=== PATIENT | male | born 1995 | race African-American/Black ===

== ENCOUNTER → 2019-09-06 | Outpatient (CLI) | payer OTHER ==
[~2019-09-06] MED LIST: HYDR-3165 PO
== END | disposition home or self-care (01) ==
LOC: LAB 13:29
PROVIDERS: ATTEND Orthopaedic Surgery
DX: Z01.818 Encounter for other preprocedural examination (principal); Z11.59 Encounter for screening for other viral diseases; S83.261A Peripheral tear of lateral meniscus, current injury, right knee, initial encounter; X58.XXXA Exposure to other specified factors, initial encounter; Y92.89 Other specified places as the place of occurrence of the external cause; Y93.89 Activity, other specified; Y99.8 Other external cause status
CPT/HCPCS: U0003-CS

== ENCOUNTER 2019-09-10 06:44 | Day surgery (SDC) | payer OTHER ==
[~2019-09-10] VITALS: Ht 177.8 cm; Wt 106.6 kg
[2019-09-10] MEDS ORDERED: PROPOFOL 10 MG/ML (20ML) VIAL. IV ONE (06:46)
[2019-09-10] MEDS ORDERED: MIDAZOLAM HCL/PF 2 MG/2 ML VIAL. ONE (06:46)
[2019-09-10] MEDS ORDERED: LIDOCAINE 2% PF 5 ML VIAL. ONE (06:46)
[2019-09-10] MEDS ORDERED: fentaNYL PF VIAL 100 MCG/2 ML VIAL ONE (06:46)
[2019-09-10] MEDS ORDERED: ONDANSETRON PF 4 MG/2 ML VIAL. ONE (06:46)
[2019-09-10] MEDS ORDERED: KETOROLAC 30 MG/ML VIAL. ONE (06:46)
[2019-09-10] MEDS ORDERED: DEXAMETHASONE SOD PHOS 4 MG/ML VIAL ONE (06:46)
[2019-09-10] MEDS ORDERED: MORPHINE SULFATE 2 MG/ML VIAL. IV PRN (07:00)
[2019-09-10] MEDS ORDERED: IV RINGERS,LACTATED 1000ML 1,000 ML IV SCH (07:00)
[2019-09-10] MEDS ORDERED: fentaNYL PF VIAL 100 MCG/2 ML VIAL IV PRN ×2 (07:00)
[2019-09-10] MEDS ORDERED: PROCHLORPERAZINE 10 MG/2 ML VIAL. IV PRN (07:00)
[2019-09-10] MEDS ORDERED: ONDANSETRON PF 4 MG/2 ML VIAL. IV PRN (07:00)
[2019-09-10] MEDS ORDERED: HYDROmorphone 2 MG/ML VIAL IV PRN (07:00)
[2019-09-10] MEDS ORDERED: BUPIVACAINE-EPI 0.5%-1:200000 MPF 30 ML VIAL. ONE (07:01)
[2019-09-10] MEDS ORDERED: BUPIVACAINE MPF 0.5% 30 ML VIAL. ONE (07:02)
[2019-09-10] MEDS ORDERED: GLYCOPYRROLATE 1 MG/5 ML VIAL. ONE (07:16)
[2019-09-10] MEDS ORDERED: HYDR-3165 PO (08:24)
--- NOTE | 2019-09-10 08:25 | DISCH ---
DISCHARGE INSTRUCTIONS Condition on Discharge Condition on Discharge: Stable Activity After Discharge Activity Instructions for Disc: Other, see below (Slow return to normal act ivity as tolerated) Weight Bearing Status after Di: As tolerated Diet after Discharge Diet after Discharge: Regular Wound Incision Care Wound/Incision Care: Ice to area for comfort, Keep wound elevated, Change dressing (Remove dressing in 2 days may then shower no soaking until sutures removed) Contacting the DRRina after DC Call your doctor for: Concerns you may have Follow-Up Follow up with: Dr. Gao 1 week RANJIT GAO MD Sep 10, 2019 08:25
[2019-09-10 08:59] VITALS: BP 142/95
[2019-09-10] MEDS ORDERED: HYDROcodone/APAP 7.5/325MG 1 TAB TABLET PO ONE (09:00)
--- NOTE | 2019-09-10 09:23 | PDOC4 ---
Operative Note Operative Note Date of surgery: 09/10/2019 Preoperative diagnosis: Right knee lateral meniscus tear Postoperative diagnosis: Same with complex tear body and posterior horn lateral meniscus Operative procedure: Right knee arthroscopy partial lateral meniscectomy Surgeon: Sima Diver Tender: Candice Estimated blood loss: 5 cc Complications: None Operative indications: Please see my orthopedic clinic note for detailed operative indications and note that patient is an active 24-year-old male with pain swelling mechanical symptoms and MRI showing a lateral meniscus tear. We covered risks benefits postoperative course of surgical treatment including the possibility of a repair if the anatomy of the tear is sufficient to potential healing and the potential excision of the damaged part of the meniscus if it is not. We covered restrictions if the repair is feasible and carried out versus partial meniscectomy. All his questions were answered he wishes to proceed with surgical evaluation and treatment Operative text: Patient was identified procedure verified patient placed in the supine position on the operating table. After adequate amounts of general anesthesia were administered the right lower extremity was prepped and draped in standard sterile fashion with a thigh tourniquet. After timeout was performed patient procedure identified and verified the right lower extremity was exsanguinated by Esmarch bandage tourniquet inflated to 350 mmHg and a lateral portal was established medial portal established using spinal needle localization and the knee joint was systematically examined. He was found to have good patellofemoral tracking no significant chondromalacia no loose bodies noted in the gutters or suprapatellar pouch area medial meniscus was probed and found to be intact as was the anterior cruciate ligament. The lateral meniscus was probed and found to have a complex parrot-beak type tear of the posterior horn and body of the lateral meniscus which was not repairable. The unstable tear was trimmed back to stable tissue with the arthroscopic punch and shaver and radius appropriately back to stable tissue along the meniscal rim. The amount of excision measured approximately 30% of the inside rim of the meniscus. The knee was then toward to ensure no loose bodies or other findings were present. It was drained of arthroscopic fluid fat pad and portal areas infused with half percent Marcaine portals closed with nylon suture sterile dressings were applied patient was returned to recovery room in stable condition having tolerated procedure well. Madhuri emanuel assist was present for the procedure assisted in the prepping draping positioning closure and dressings RANJIT PACHECO MD Sep 10, 2019 09:23
== END 2019-09-10 09:38 | disposition home or self-care (01) ==
LOC: SURG 06:44
PROVIDERS: ATTEND Orthopaedic Surgery
DX: S83.271A Complex tear of lateral meniscus, current injury, right knee, initial encounter (principal); X58.XXXA Exposure to other specified factors, initial encounter; Y93.89 Activity, other specified; Y92.89 Other specified places as the place of occurrence of the external cause; Y99.8 Other external cause status
CPT/HCPCS: 29881; A7015; J0696; J1100; J1885; J2250; J2405; J2704; J3010; J3490